=== PATIENT | female | born 1995 | race Caucasian/White ===

== ENCOUNTER 2018-11-26 09:58 | Emergency (ER) | payer SELFPAY ==
[~2018-11-26] VITALS: Ht 157.5 cm; Wt 61.0 kg
[~2018-11-26 09:58] MED LIST: IBUP-1222 PO; PREN1TAB52 PO
[2018-11-26 10:21] VITALS: BP 91/58
--- NOTE | 2018-11-26 12:45 | NUR ---
CALLED FOR ROOM, NO ANSWER.
--- NOTE | 2018-11-26 15:09 | NUR ---
2ND CALL FOR ROOM, NO ANSWER.
--- NOTE | 2018-11-26 15:35 | NUR ---
3RD CALL FOR ROOM, NO ANSWER.
== END 2018-11-26 15:37 | disposition left against medical advice (07) ==
LOC: ED 15:31
DX: J02.9 Acute pharyngitis, unspecified (principal); Z53.21 Procedure and treatment not carried out due to patient leaving prior to being seen by health care provider